=== PATIENT | female | born 1960 | race Caucasian/White ===

== ENCOUNTER → 2019-10-08 | Outpatient (CLI) | payer OTHER ==
--- NOTE | 2019-10-08 16:21 | PCVCIMAG ---
APPROVED REPORT Study performed: 10/08/2019 15:20:09 EXAM: Comprehensive 2D, Doppler, and color-flow Echocardiogram Patient Location: Echo lab Status: routine BSA: 1.77 HR: 78 bpmBP: 128/80 mmHg Rhythm: NSR Other Information Study Quality: Adequate Risk Factors: Cardiac Risk Factors: Smoking, Hyperlipidemia Indications Visual disturbance Echo Enhancing Agent Indication: Rule out Shunt Agent(s) / Amount(s) Used: Agitated Saline cc 2D Dimensions IVSd: 13.26 (7-11mm)LVOT Diam: 19.56 (18-24mm) LVDd: 31.55 mm PWd: 11.34 (7-11mm)Ascending Ao: 31.02 (22-36mm) LVDs: 23.43 (25-40mm) Left Atrium: 27.51 (27-40mm) Aortic Root: 30.76 mm Volumes Left Atrial Volume (Systole) Single Plane 4CH: 26.47 mLSingle Plane 2CH: 26.93 mL LA ESV Index: 15.00 mL/m2 Aortic Valve AoV Peak Bijan.: 1.27 m/s AO Peak Gr.: 6.44 mmHgLVOT Max P.89 mmHg LVOT Max V: 0.85 m/s ANTWON Vmax: 2.01 cm2 Mitral Valve E/A Ratio: 0.8 MV Decel. Time: 264.56 ms MV E Max Bijan.: 0.62 m/s MV A Bijan.: 0.76 m/s TDI E/Lateral E': 5.17E/Medial E': 6.89 Medial E' Bijan.: 0.09 m/s Lateral E' Bijan.: 0.12 m/s Pulmonary Valve PV Peak Gr.: 3.53 mmHg Pulmonary Vein P Vein S: 0.68 m/sP Vein A: 0.42 m/s P Vein D: 0.54 m/sP Vein A Dur.: 121.1 msec P Vein S/D Ratio: 1.26 Tricuspid Valve TR Peak Bijan.: 2.45 m/s TR Peak Gr.: 23.93 mmHg Left Ventricle The left ventricle is normal size. There is normal LV segmental wall motion. There is normal left ventricular wall thickness. Left ventricular systolic function is normal. The left ventricular ejection fraction is within the normal range. LVEF is 55-60%. Right Ventricle The right ventricle is normal size. The right ventricular systolic function is normal. Atria The left atrium size is normal. Injection of bubbles documented no interatrial shunt. The right atrium size is normal. Aortic Valve The aortic valve is normal in structure. No aortic regurgitation is present. There is no aortic valvular stenosis. Mitral Valve The mitral valve is normal in structure. There is no mitral valve regurgitation noted. No evidence of mitral valve stenosis. Tricuspid Valve The tricuspid valve is normal in structure. Trace tricuspid regurgitation. Pulmonary artery pressure is 25mmHg. Pulmonic Valve The pulmonary valve is normal in structure. There is no pulmonic valvular regurgitation. Great Vessels The aortic root is normal in size. IVC is normal in size and collapses >50% with inspiration. Pericardium There is no pericardial effusion. <Conclusion> The left ventricle is normal size. There is normal left ventricular wall thickness. Left ventricular systolic function is normal. The right ventricle is normal size. Injection of bubbles documented no interatrial shunt. The left atrium size is normal. The aortic valve is normal in structure. There is no mitral valve regurgitation noted. Trace tricuspid regurgitation. Pulmonary artery pressure is 25mmHg.
== END | disposition home or self-care (01) ==
LOC: PCVCIMAG 14:57
PROVIDERS: ATTEND Internal Medicine Cardiovascular Disease
DX: E78.5 Hyperlipidemia, unspecified (principal); H53.9 Unspecified visual disturbance; F17.200 Nicotine dependence, unspecified, uncomplicated; E78.00 Pure hypercholesterolemia, unspecified; Z79.82 Long term (current) use of aspirin
CPT/HCPCS: 93306